=== PATIENT | female | born 1985 ===

== ENCOUNTER 2020-10-15 21:04 | Emergency (ER) | payer SELFPAY ==
[~2020-10-15] VITALS: Ht 162.6 cm; Wt 62.7 kg
[2020-10-15] MEDS ORDERED: CLEOCIN HCL300 MG PO (21:59)
[2020-10-15 22:22] VITALS: BP 127/83; PULSE 71; TEMP 98.5
== END 2020-10-15 22:22 | disposition home or self-care (01) ==
LOC: COL.ER 21:04
DX: L08.9 Local infection of the skin and subcutaneous tissue, unspecified (principal); S61.240A Puncture wound with foreign body of right index finger without damage to nail, initial encounter; Z23 Encounter for immunization; W46.1XXA Contact with contaminated hypodermic needle, initial encounter